=== PATIENT | female | born 1950 | race Caucasian/White ===

== ENCOUNTER → 2018-01-11 09:44 | Outpatient (CLI) | payer MEDICARE, OTHER, SELFPAY ==
--- NOTE | 2018-01-11 | DI.MRI.S_ITS ---
PROCEDURE: MR KNEE RT WO CON INDICATIONS: RIGHT KNEE PAIN TECHNIQUE: Noncontrast sagittal PD fast spin echo and T2 fast spin echo with fat saturation, sagittal 3-D FLASH with fat saturation; coronal T1 spin echo and PD fast spin echo with fat saturation, and axial PD fast spin echo with fat saturation through the knee. COMPARISON: None. FINDINGS: Image quality: Excellent. Menisci: There is peripheral displacement of the medial meniscus bowing medial collateral ligament. There is complex tear involving body and posterior horn of medial meniscus extending to both superior and inferior articulating surfaces. The There is no evidence of focal lateral meniscal tear. The meniscal root ligaments appear intact. Cruciate ligaments: There is suggestion of intrasubstance partial-thickness tear involving the anterior cruciate ligament. Myxoid degenerative changes versus intrasubstance partial-thickness tear involving PCL is also seen. No full-thickness ACL or PCL rupture. Medial structures: There is a moderate grade proximal to mid MCL sprain. No evidence of MCL rupture. The posterior oblique ligament, semimembranosus tendon insertions, oblique popliteal ligament, and meniscocapsular junction appear intact. Visualized portions of the pes anserinus tendons appear normal. No abnormal bursal fluid. Lateral structures: The lateral collateral ligament, long and short heads of the biceps femoris tendon appear intact. The popliteus tendon appears normal; the popliteofibular ligament appears intact. The posterosuperior and anteroinferior popliteomeniscal fascicles appear intact. The arcuate and fabellofibular ligaments appear intact, on either side of the lateral inferior geniculate artery. Iliotibial band appears normal. Anterior structures: The quadriceps and patellar tendons appear intact. Patellar alignment is normal. No femoral trochlear dysplasia or ventral trochlear prominence. No edema in the infrapatellar fat pad. Bones and cartilage: There is moderate tricompartmental osteoarthritis more prominent in the medial femorotibial compartment. Mild chondromalacia involving apex and medial facet of patella cartilage is also seen. Joint space: There is small amount of joint fluid, no gross loose body. No Bethea's cyst. Normal appearing synovial plicae are incidentally noted. IMPRESSION: 1. Complex tear involving body and posterior horn of medial meniscus extending to both superior and inferior articulating surfaces. No evidence of focal lateral meniscal tear. 2. Degenerative changes versus intrasubstance partial-thickness tear involving anterior and posterior cruciate ligaments. No evidence of cruciate ligament rupture. 3. Multiple moderate grade MCL sprain. Moderate tricompartmental osteoarthritis and small joint effusion. Dictated by: Ben Johns M.D. on 01/11/2018 at 14:26 Approved by: Ben Johns M.D. on 01/11/2018 at 14:35
== END ==
PROVIDERS: Visit Provider Orthopaedic Surgery
DX: S83.231A Complex tear of medial meniscus, current injury, right knee, initial encounter (principal); M25.561 Pain in right knee; S83.411A Sprain of medial collateral ligament of right knee, initial encounter; M17.11 Unilateral primary osteoarthritis, right knee; M25.461 Effusion, right knee
CPT/HCPCS: 73721